=== PATIENT | female | born 1965 | race Caucasian/White ===

== ENCOUNTER 2016-12-07 08:17 | Outpatient (CLI) | payer OTHER ==
[2016-12-07 09:03] LABS: ALT (SGPT) 14 U/L (8-55); AST (SGOT) 11 U/L (5-34); Albumin 4.4 g/dL (3.5-5.0); Alkaline Phosphatase 165 U/L (40-150); Anion Gap 15 mmol/L (10-20); BUN (Urea Nitrogen) 15 mg/dL (9.8-20.1); Bilirubin, Total 0.2 mg/dL (0.2-1.2); Calc. Creatinine Clearance 0 mL/min (70-130); Calcium 9.4 mg/dL (7.8-10.44); Carbon Dioxide 28 mmol/L (22-29); Cardiac Risk 5.6 (Less than 4.5); Chloride 101 mmol/L (98-107); Cholesterol 228 mg/dL (< 200 Desired); Estimated GFR-MDRD 67; Globulin 3.6 g/dL (2.4-3.5); Glucose 147 mg/dL (70-105); HDL Cholesterol 41 mg/dL (>60 Neg Risk); LDL Cholesterol, Calculated 119 mg/dL; Potassium 3.9 mmol/L (3.5-5.1); Sodium 140 mmol/L (136-145); Triglycerides 338 mg/dL (Less than 150)
== END 2016-12-07 08:18 | disposition home or self-care (01) ==
LOC: BURLAB 08:17
PROVIDERS: ATTEND Internal Medicine Cardiovascular Disease
DX: E78.00 Pure hypercholesterolemia, unspecified (principal)
CPT/HCPCS: 36415; 80053; 80061

== ENCOUNTER 2017-01-01 03:09 | Emergency (ER) | payer OTHER ==
[2017-01-01] MEDS ORDERED: Ondansetron HCl/PF 4 MG/2 ML Vial ONE (03:17)
[2017-01-01] MEDS ORDERED: Ibuprofen 200 MG TAB ONE (03:31)
[2017-01-01 03:45] LABS: #Eosinphils 0.2 thou/uL (0.0-0.7); #Lymphocytes 1.8 thou/uL (1.20-3.40); #Monocytes 0.3 thou/uL (0.11-0.59); #Neutrophils 3.7 thou/uL (1.40-6.50); %Basophils 0.8 % (0.0-1.0); %Lymphocytes 29.4 % (21.0-51.0); %Monocytes 5.6 % (0.0-10.0); %Neutrophils 60.2 % (42.0-75.0); Hemoglobin 12.4 g/dL (12.0-16.0); Mean Corpuscular HGB CONC 31.4 g/dL (32.0-36.0); Mean Corpuscular Hemoglobin 25.1 pg (27.0-31.0); Mean Corpuscular Volume 79.8 fl (81.0-99.0); Mean Platelet Volume 7.9 fL (7.4-10.4); Platelet Count 234 thou/uL (130-400); RBC Distribution Width 14.7 % (11.5-14.5); Red Blood Cell (RBC) Count 4.96 mill/uL (4.20-5.40); White Blood Cell (WBC) Count 6.1 thou/uL (4.8-10.8)
[2017-01-01 04:00] LABS: ALT (SGPT) 18 U/L (8-55); AST (SGOT) 17 U/L (5-34); Albumin 3.7 g/dL (3.5-5.0); Alkaline Phosphatase 127 U/L (40-150); Anion Gap 16 mmol/L (10-20); BUN (Urea Nitrogen) 6 mg/dL (9.8-20.1); Bilirubin, Total 0.2 mg/dL (0.2-1.2); Calc. Creatinine Clearance 0 mL/min (70-130); Calcium 8.2 mg/dL (7.8-10.44); Carbon Dioxide 17 mmol/L (22-29); Chloride 115 mmol/L (98-107); Estimated GFR-MDRD 75; Globulin 3.4 g/dL (2.4-3.5); Glucose 136 mg/dL (70-105); Potassium 3.5 mmol/L (3.5-5.1); Protein, Total 7.1 g/dL (6.0-8.3); Sodium 144 mmol/L (136-145)
[2017-01-01 04:01] LABS: CKMB 2.9 ng/mL (0-6.6); Troponin I 0.015 ng/mL (< 0.028)
[2017-01-01 04:02] LABS: Acetaminophen Less than 6.0 mcg/mL (10.0-30.0); Alcohol 198 mg/dL (Less than 10); Salicylate Less than 8.0 mg/dL (15.0-30.0)
[2017-01-01 04:15] LABS: Lipase 45 U/L (8-78)
== END 2017-01-01 04:18 | disposition home or self-care (01) ==
LOC: BURERS 03:09
DX: R11.2 Nausea with vomiting, unspecified (principal); R19.7 Diarrhea, unspecified; I10 Essential (primary) hypertension; F17.210 Nicotine dependence, cigarettes, uncomplicated; Z79.82 Long term (current) use of aspirin; Z79.899 Other long term (current) drug therapy
CPT/HCPCS: 36416; 80053; 80307; 82553; 83605; 83690; 84484; 85025; 93005; 96361; 96374; 36415-59; J2405

== ENCOUNTER 2017-02-15 13:51 | Emergency (ER) | payer OTHER ==
[2017-02-15 14:15] LABS: #Basophils 0.1 thou/uL (0.0-0.2); #Eosinphils 0.3 thou/uL (0.0-0.7); #Lymphocytes 2.7 thou/uL (1.20-3.40); #Monocytes 0.5 thou/uL (0.11-0.59); #Neutrophils 5.3 thou/uL (1.40-6.50); %Basophils 0.7 % (0.0-1.0); %Eosinophils 3.9 % (0.0-10.0); %Lymphocytes 30.4 % (21.0-51.0); Mean Corpuscular HGB CONC 32.1 g/dL (32.0-36.0); Mean Corpuscular Hemoglobin 25.7 pg (27.0-31.0); Mean Corpuscular Volume 80.1 fl (81.0-99.0); Platelet Count 241 thou/uL (130-400); RBC Distribution Width 16.6 % (11.5-14.5); Red Blood Cell (RBC) Count 5.05 mill/uL (4.20-5.40)
[2017-02-15 14:33] LABS: ALT (SGPT) 12 U/L (8-55); AST (SGOT) 8 U/L (5-34); Alkaline Phosphatase 147 U/L (40-150); Anion Gap 17 mmol/L (10-20); BUN (Urea Nitrogen) 11 mg/dL (9.8-20.1); Bilirubin, Total 0.3 mg/dL (0.2-1.2); Calc. Creatinine Clearance 0 mL/min (70-130); Calcium 8.6 mg/dL (7.8-10.44); Carbon Dioxide 20 mmol/L (22-29); Chloride 105 mmol/L (98-107); Estimated GFR-MDRD 60; Globulin 3.7 g/dL (2.4-3.5); Glucose 172 mg/dL (70-105); Potassium 3.4 mmol/L (3.5-5.1); Protein, Total 7.7 g/dL (6.0-8.3); Sodium 139 mmol/L (136-145)
[2017-02-15 14:35] LABS: CKMB 3.3 ng/mL (0-6.6); Troponin I Less than 0.010 ng/mL (< 0.028)
--- NOTE | 2017-02-15 16:47 | RAD ---
PORTABLE CHEST 02/15/17 An AP portable film at 1409 is compared with a 08/24/16 study. The heart is normal in size. The lungs are clear. No acute infiltrate or effusion was seen. There is no vascular congestion or edema present. The trachea is midline. Median sternotomy sutures are seen from prior surgery. IMPRESSION: No acute thoracic findings. POS: HOME
== END 2017-02-15 15:25 | disposition home or self-care (01) ==
LOC: BURERS 13:51
DX: R06.00 Dyspnea, unspecified (principal); I10 Essential (primary) hypertension; I25.2 Old myocardial infarction; Z87.891 Personal history of nicotine dependence; Z79.82 Long term (current) use of aspirin; Z79.899 Other long term (current) drug therapy
CPT/HCPCS: 71010; 80053; 82553; 83880; 84484; 85025; 85379; 93005

== ENCOUNTER 2018-05-24 13:20 | Outpatient (CLI) | payer OTHER ==
--- NOTE | 2018-05-25 07:31 | RAD ---
CHEST TWO VIEWS: Date: 05-24-18 Comparison: 02-15-17 FINDINGS: The heart is normal in size. There appears to have been a prior CABG. There is no vascular congestion or edema. There is perhaps a little prominence of the interstitial markings such as one might see wi th minimal fibrosis. No focal infiltrate or effusion was appreciated. Small lesions would probably be missed in this patient and only be seen by a CT. IMPRESSION: No definite acute finding. POS: HOME
--- NOTE | 2018-05-25 07:31 | RAD ---
LEFT KNEE TWO VIEWS: Date: 05-24-18 FINDINGS: There is slight medial joint space narrowing. No fracture was seen. There is no large joint effusions . Some bony spurring is seen in the patellofemoral joint. Vascular clips are seen in the medial porti on of the distal thigh and proximal leg. IMPRESSION: No acute finding. POS: HOME
== END 2018-05-24 13:21 | disposition home or self-care (01) ==
LOC: BURRAD 13:20
PROVIDERS: ATTEND Internal Medicine
DX: Z02.3 Encounter for examination for recruitment to armed forces (principal)
CPT/HCPCS: 71046

== ENCOUNTER 2019-03-15 09:13 | Emergency (ER) | payer OTHER, SELFPAY ==
[2019-03-15 09:47] LABS: Bilirubin Negative (Negative); Blood, Urine Negative (Negative); Clarity Clear (Clear); Glucose, Urine (Dipstick) Negative (Negative); Leukocyte Trace (Negative); Nitrite Negative (Negative); Protein, Urine (Dipstick) Negative (Neg-Trace); Urobilinogen 0.2 mg/dL (Less than 2)
[2019-03-15 09:58] LABS: RBC/HPF 0-3 HPF (0-3)
[2019-03-15 09:59] LABS: Bacteria/HPF Rare-Few HPF (None Seen); Squamous Epithelial 0-3 HPF (0-3); WBC/HPF 0-3 HPF (0-3)
--- NOTE | 2019-03-15 10:15 | RAD ---
PA AND LATERAL CHEST: History: Right flank pain, back pain, chest pain. FINDINGS: Comparison is made with exam of 05-24-18. There are changes of median sternotomy. The heart size is normal. The lungs are expanded without foca l areas of consolidation, pneumothoraces, or pleural effusions. No acute cardiopulmonary process is s een. IMPRESSION: No radiographic evidence of acute cardiopulmonary process. POS: [facility]
[2019-03-15] MEDS ORDERED: traMADol HCl 50 MG TAB ONE (10:33)
== END 2019-03-15 10:37 | disposition home or self-care (01) ==
LOC: BURERS 09:13
DX: S29.012A Strain of muscle and tendon of back wall of thorax, initial encounter (principal); I25.2 Old myocardial infarction; E11.9 Type 2 diabetes mellitus without complications; E78.5 Hyperlipidemia, unspecified; I10 Essential (primary) hypertension; F17.210 Nicotine dependence, cigarettes, uncomplicated; Z79.899 Other long term (current) drug therapy; Z79.84 Long term (current) use of oral hypoglycemic drugs; X58.XXXA Exposure to other specified factors, initial encounter
CPT/HCPCS: 71046; 81003; 81015

== ENCOUNTER 2020-05-06 16:46 | Outpatient (CLI) | payer OTHER ==
--- NOTE | 2020-05-06 20:25 | RAD ---
CHEST TWO VIEWS: 05/06/20 Comparison is made with the 03/15/19 study. The heart is normal in size. There are no lobar consolidations or effusions. There is no vascular co ngestion or edema. IMPRESSION: No acute findings. POS: HOME
== END 2020-05-06 16:47 | disposition home or self-care (01) ==
LOC: BURRAD 16:46
PROVIDERS: ATTEND Physician Assistant
DX: R05 Cough (principal)
CPT/HCPCS: 71046

== ENCOUNTER 2020-05-09 16:34 | Emergency (ER) | payer OTHER ==
[~2020-05-09 16:34] MED LIST: Iopamidol 370 76% 100 ML VIAL ONE
[2020-05-09] MEDS ORDERED: Magnesium 2 GM/50 ML BAG (IN WATER) ONE (17:16)
[2020-05-09] MEDS ORDERED: methylPREDNISolone Sod Succ/PF 125 MG/2 ML VIAL ONE (17:16)
--- NOTE | 2020-05-09 17:29 | RAD ---
PORTABLE CHEST 05/09/20 COMPARISON: Comparison is made with the 05/06 study. This portable film at 1716 does not show any major infiltrate . There may be a little bit of patchy streaking in the left base. The upper lobes are clear. There is no sign of effusion. The heart and mediastinum showed no significant change. IMPRESSION: Question of minimal left basilar streaking. POS: HOME
[2020-05-09 17:58] LABS: ALT (SGPT) 22 U/L (8-55); AST (SGOT) 16 U/L (5-34); Albumin 4.1 g/dL (3.5-5.0); Alkaline Phosphatase 99 U/L (40-110); BUN (Urea Nitrogen) 6 mg/dL (9.8-20.1); Bilirubin, Total 0.3 mg/dL (0.2-1.2); Calcium 8.7 mg/dL (7.8-10.44); Carbon Dioxide 21 mmol/L (22-29); Chloride 101 mmol/L (98-107); Estimated GFR-MDRD 53; Glucose 127 mg/dL (70-105); Potassium 4.2 mmol/L (3.5-5.1); Protein, Total 7.1 g/dL (6.0-8.3)
[2020-05-09 18:02] LABS: #Basophils 0.1 thou/uL (0.0-0.2); #Eosinphils 0.4 thou/uL (0.0-0.7); #Lymphocytes 2.3 thou/uL (1.20-3.40); #Neutrophils 12.4 thou/uL (1.40-6.50); %Basophils 0.5 % (0.0-1.0); %Eosinophils 2.3 % (0.0-10.0); %Lymphocytes 14.1 % (21.0-51.0); %Monocytes 6.4 % (0.0-10.0); %Neutrophils 76.7 % (42.0-75.0); Hemoglobin 13.1 g/dL (12.0-16.0); Mean Corpuscular HGB CONC 29.7 g/dL (32.0-36.0); Mean Corpuscular Hemoglobin 26.4 pg (27.0-31.0); Mean Corpuscular Volume 88.7 fL (78.0-98.0); Mean Platelet Volume 8.8 fL (7.4-10.4); Platelet Count 315 thou/uL (130-400); RBC Distribution Width 14.5 % (11.5-14.5); Red Blood Cell (RBC) Count 4.95 mill/uL (4.20-5.40); White Blood Cell (WBC) Count 16.2 thou/uL (4.8-10.8)
[2020-05-09 18:05] LABS: Hypochromia SLIGHT = 6-15 cells (100X) (0-5/hpf); MDiff Complete? YES
[2020-05-09 18:25] LABS: Sodium 133 mmol/L (136-145)
[2020-05-09 18:27] LABS: Anion Gap 15 mmol/L (10-20)
[2020-05-09 18:40] LABS: Base Excess-Venous -2.2 mmol/L (-2.0 to 3.0); Bicarbonate (HCO3v) 22.3 mmol/L (22.0-28.0); CO2 Tension (PvCO2) 36.9 mmHg (40.0-50.0); Calcium, Ionized 1.17 mmol/L (1.15-1.33); Chloride 99 mmol/L (98-107); Hemoglobin - Calc 14.9 g/dL (12.0-16.0); Potassium 3.9 mmol/L (3.5-5.1); Sodium 133 mmol/L (138-145); T. Carbon Dioxide 23.5 mmol/L (22.0-28.0); vO2 Saturation-calc 74.8 % (60.0-85.0)
[2020-05-09] MEDS ORDERED: cefTRIAXone\\ROCEPHIN 1 GM VIAL ONE (19:00)
[2020-05-09] MEDS ORDERED: Azithromycin 500 MG VIAL ONE (19:00)
[2020-05-09] MEDS ORDERED: Sodium Chloride 0.9% 100 ML ONE (19:01)
[2020-05-09 19:29] LABS: Bilirubin Negative (Negative); Blood, Urine Negative (Negative); Clarity Slightly Cloudy (Clear); Glucose, Urine (Dipstick) Negative (Negative); Ketone, Urine Negative (Negative); Leukocyte Small (Negative); Nitrite Positive (Negative); Protein, Urine (Dipstick) Negative (Neg-Trace); Specific Gravity, Urine 1.008 (1.002-1.036); pH, Urine 5.5 (5.0-9.0)
[2020-05-09 19:31] LABS: Bacteria/HPF 3+ HPF (None Seen); RBC/HPF 0-3 HPF (0-3); Squamous Epithelial 0-3 HPF (0-3)
--- NOTE | 2020-05-09 22:01 | CT ---
CT ANGIO OF CHEST: Date: 05/09/[address] of the chest was done after a bolus of IV contrast. The amount was reduced due to a low GFR . Unfortunately, the timing of the study was off and this is really an arterial phase study and does not show the pulmonary system well. The most one could say is the main pulmonary artery and the right and left pulmonary arteries do not appear to have any large emboli in them. Past that, little can be said. Both coronary arteries fill. No mediastinal mass was seen. There is no pericardial effusion. There we re several lymph nodes seen just anterior to the nallely measuring up to 1.5 cm in size and one or two to the left of the aorta and main pulmonary artery measuring up to 1.2 cm. The lungs are abnormal in appearance in this patient. There is a diffuse tree-in-bud pattern througho ut all lobes. This is most typical of viral and interstitial pneumonias. There are, however, several small patchy ground-glass densities seen in various lobes. This has been described with COVID. A carlos tary 7.0 mm smooth nodule is seen in the periphery of the left upper lobe on one slice. There are no effusions apparent. Scans into the upper abdomen showed no focal findings of concern in the areas scanned. The adrenal gl ands are unremarkable in appearance. IMPRESSION: 1. Diffuse tree-in-bud pattern to the lungs, but also along with a few patchy ground-glass densities . The very diffuse pattern is more typical of interstitial pneumonias, but the patchy ground-glass de nsities (though not numerous) have been described in COVID. All of the above should be considerations in a differential diagnosis. 2. Indeterminate study for pulmonary embolism. The most that can be said is there were no large sadd le type emboli near the junction of the main pulmonary artery with the right and left arteries. 3. Small, 7.0 mm, smooth nodule in the peripheral left upper lobe. Statistically, this is more often benign than not, but doubtless this patient will get further follow-up imaging and it can be watched on those future studies. Findings discussed with Dr. Samuel at 2000 hours on 05/09/2020. CODE CR. POS: HOME
== END 2020-05-09 20:49 | disposition short-term general hospital (02) ==
LOC: BURERS 16:34
DX: J44.1 Chronic obstructive pulmonary disease with (acute) exacerbation (principal); J96.00 Acute respiratory failure, unspecified whether with hypoxia or hypercapnia; J18.9 Pneumonia, unspecified organism; I25.2 Old myocardial infarction; E11.9 Type 2 diabetes mellitus without complications; E78.2 Mixed hyperlipidemia; I10 Essential (primary) hypertension; F17.210 Nicotine dependence, cigarettes, uncomplicated; Z79.899 Other long term (current) drug therapy; Z79.82 Long term (current) use of aspirin; Z79.84 Long term (current) use of oral hypoglycemic drugs
CPT/HCPCS: 36415; 71045; 71275; 80053; 81003; 81015; 82330; 82803; 83880; 84484; 85025; 87040; 87077; 87086; 87186; 87804; 93005; 94760; 96365; 96367; 96375; J0456; J0696; J2930; J3475; J3490; J7620; Q9967

== ENCOUNTER 2020-06-14 20:29 | Emergency (ER) | payer OTHER ==
[2020-06-14] MEDS ORDERED: Lidocaine 1% w/Epinephrine 1:100K 20 ML VIAL ONE (20:35)
[2020-06-14] MEDS ORDERED: Bacitracin 1 PK ONE (21:18)
[2020-06-14] MEDS ORDERED: Cephalexin 250 MG CAP ONE (22:07)
--- NOTE | 2020-06-15 07:00 | CT ---
CT BRAIN WITHOUT CONTRAST: 06/14/20 FINDINGS: The ventricles are normal in size with no shift. No intracranial bleeding or extraaxial hematoma is s een. There is no sign of acute stroke, mass or edema. A soft tissue laceration and swelling is seen i n the scalp over the left frontal bone. The underlying skull appears intact and the visible paranasal sinuses are clear. IMPRESSION: No acute intracranial findings. Preliminary report called to Pavithra in the ER at 2138 hours on 06/14/20. CODE CR POS: HOME
--- NOTE | 2020-06-15 08:15 | CT ---
CT CERVICAL SPINE: 06/14/20 HISTORY/TECHNIQUE: A spiral CT of the cervical spine was done following trauma. FINDINGS: No fracture, dislocation or disk space abnormality is seen. The C1 to dens distance is normal and the soft tissues are normal in thickness. There is no sign of significant central canal or foraminal rahul nosis. IMPRESSION: No acute traumatic changes. Preliminary report called to Pavithra in the ER at 2138 hours on 06/14/20. CODE CR POS: HOME
--- NOTE | 2020-06-15 08:17 | RAD ---
RIGHT KNEE: 06/14/20 FINDINGS: Multiple views are provided, which show no acute fracture or joint effusion. A small bony density modesto ng the inferior pole of the patella is obviously from an old injury. There may be some soft tissue th ickening in the vicinity of the patellar tendon. Some very minimal osteophytes are forming in the sal nt. IMPRESSION: No acute bony finding. POS: HOME
== END 2020-06-14 22:10 | disposition home or self-care (01) ==
LOC: BURERS 20:29
DX: S01.81XA Laceration without foreign body of other part of head, initial encounter (principal); S80.01XA Contusion of right knee, initial encounter; I25.2 Old myocardial infarction; E11.9 Type 2 diabetes mellitus without complications; I10 Essential (primary) hypertension; E78.5 Hyperlipidemia, unspecified; J44.9 Chronic obstructive pulmonary disease, unspecified; E78.2 Mixed hyperlipidemia; F17.210 Nicotine dependence, cigarettes, uncomplicated; Z79.899 Other long term (current) drug therapy; Z79.82 Long term (current) use of aspirin; Z79.84 Long term (current) use of oral hypoglycemic drugs
CPT/HCPCS: 12014; 70450; 72125

== ENCOUNTER 2021-08-21 18:16 | Emergency (ER) | payer OTHER ==
[2021-08-21] MEDS ORDERED: Boostrix 0.5 ML (Tdap) VIAL ONE (18:52)
== END 2021-08-21 19:21 | disposition home or self-care (01) ==
LOC: BURERS 18:16
DX: S92.521A Displaced fracture of middle phalanx of right lesser toe(s), initial encounter for closed fracture (principal); S93.411A Sprain of calcaneofibular ligament of right ankle, initial encounter; I25.2 Old myocardial infarction; E11.9 Type 2 diabetes mellitus without complications; E78.5 Hyperlipidemia, unspecified; I10 Essential (primary) hypertension; J44.9 Chronic obstructive pulmonary disease, unspecified; F17.210 Nicotine dependence, cigarettes, uncomplicated; W01.0XXA Fall on same level from slipping, tripping and stumbling without subsequent striking against object, initial encounter
CPT/HCPCS: 90471; 90715

== ENCOUNTER 2021-12-18 17:27 | Emergency (ER) | payer OTHER ==
[2021-12-18 18:47] LABS: #Eosinphils 0.2 thou/uL (0.0-0.7); #Lymphocytes 1.2 thou/uL (1.20-3.40); #Monocytes 0.4 thou/uL (0.11-0.59); #Neutrophils 5.9 thou/uL (1.40-6.50); %Basophils 0.6 % (0.0-1.0); %Eosinophils 2.6 % (0.0-10.0); %Lymphocytes 15.5 % (21.0-51.0); %Monocytes 4.8 % (0.0-10.0); %Neutrophils 76.5 % (42.0-75.0); Hemoglobin 11.1 g/dL (12.0-16.0); Mean Corpuscular Hemoglobin 30.8 pg (27.0-31.0); Mean Corpuscular Volume 96.3 fL (78.0-98.0); Mean Platelet Volume 8.9 fL (7.4-10.4); Platelet Count 218 thou/uL (130-400); RBC Distribution Width 17.5 % (11.5-14.5); Red Blood Cell (RBC) Count 3.61 mill/uL (4.20-5.40); White Blood Cell (WBC) Count 7.8 thou/uL (4.8-10.8)
[2021-12-18 18:56] LABS: INR-International Normal Ratio 1.1; Prothrombin Time 14.1 sec (12.0-14.7)
[2021-12-18 19:04] LABS: ALT (SGPT) 23 U/L (8-55); AST (SGOT) 16 U/L (5-34); Albumin 3.5 g/dL (3.5-5.0); Alkaline Phosphatase 50 U/L (40-110); Anion Gap 17 mmol/L (10-20); BUN (Urea Nitrogen) 18 mg/dL (9.8-20.1); Bilirubin, Total 0.6 mg/dL (0.2-1.2); Calc. Creatinine Clearance 0 mL/min (70-130); Calcium 7.4 mg/dL (7.8-10.44); Carbon Dioxide 24 mmol/L (22-29); Chloride 108 mmol/L (98-107); Globulin 2.7 g/dL (2.4-3.5); Glucose 120 mg/dL (70-105); Potassium 3.5 mmol/L (3.5-5.1); Protein, Total 6.2 g/dL (6.0-8.3); Sodium 145 mmol/L (136-145)
== END 2021-12-18 20:55 | disposition short-term general hospital (02) ==
LOC: BURERS 17:27
DX: S80.11XA Contusion of right lower leg, initial encounter (principal); R60.0 Localized edema; I10 Essential (primary) hypertension; E11.9 Type 2 diabetes mellitus without complications; J44.9 Chronic obstructive pulmonary disease, unspecified; I25.2 Old myocardial infarction; E78.5 Hyperlipidemia, unspecified; F17.210 Nicotine dependence, cigarettes, uncomplicated; X58.XXXA Exposure to other specified factors, initial encounter; Z95.5 Presence of coronary angioplasty implant and graft; Z79.82 Long term (current) use of aspirin; Z79.84 Long term (current) use of oral hypoglycemic drugs; Z79.899 Other long term (current) drug therapy
CPT/HCPCS: 80053; 85025; 85610; 99284

== ENCOUNTER 2023-09-05 13:30 | Emergency (ER) | payer OTHER, SELFPAY ==
[2023-09-05 14:12] LABS: #Basophils 0.1 thou/uL (0.0-0.2); #Eosinphils 0.2 thou/uL (0.0-0.7); #Lymphocytes 1.2 thou/uL (1.20-3.40); #Monocytes 0.6 thou/uL (0.11-0.59); #Neutrophils 5.4 thou/uL (1.40-6.50); %Basophils 0.9 % (0.0-1.0); %Lymphocytes 16.4 % (21.0-51.0); %Monocytes 8.2 % (0.0-10.0); %Neutrophils 71.5 % (42.0-75.0); Hematocrit 35.4 % (36.0-47.0); Hemoglobin 11.3 g/dL (12.0-16.0); Mean Corpuscular HGB CONC 31.9 g/dL (32.0-36.0); Mean Corpuscular Hemoglobin 26.5 pg (27.0-31.0); Mean Corpuscular Volume 83.1 fl (78.0-98.0); Mean Platelet Volume 7.4 fL (7.4-10.4); Platelet Count 315 10x3/uL (130-400); RBC Distribution Width 14.2 % (11.5-14.5); Red Blood Cell (RBC) Count 4.26 mill/uL (4.20-5.40); White Blood Cell (WBC) Count 7.6 10x3/uL (4.8-10.8)
[2023-09-05] MEDS ORDERED: Ipratropium/Albuterol 3 ML NEB ONE ×2 (14:19→15:13)
[2023-09-05 14:30] LABS: ALT (SGPT) 28 U/L (8-55); AST (SGOT) 24 U/L (5-34); Albumin 3.9 g/dL (3.5-5.0); Alkaline Phosphatase 54 U/L (40-110); Anion Gap 16 mmol/L (10-20); BUN (Urea Nitrogen) 13 mg/dL (9.8-20.1); Bilirubin, Total 0.4 mg/dL (0.2-1.2); Calc. Creatinine Clearance 0 mL/min (70-130); Calcium 9.1 mg/dL (7.8-10.44); Carbon Dioxide 21 mmol/L (22-29); Chloride 108 mmol/L (98-107); Estimated GFR 40; Globulin 3.3 g/dL (2.4-3.5); Glucose 116 mg/dL (70-105); Potassium 3.5 mmol/L (3.5-5.1); Protein, Total 7.2 g/dL (6.0-8.3); Sodium 141 mmol/L (136-145)
[2023-09-05 14:36] LABS: Troponin I Less than 0.010 ng/mL (< 0.028)
[2023-09-05 15:02] LABS: SARS-CoV-2 NAA Rapid Test Not Detected (NotDetected)
[2023-09-05] MEDS ORDERED: methylPREDNISolone Sod Succ 40 MG VIAL ONE (15:13)
== END 2023-09-05 16:09 | disposition home or self-care (01) ==
LOC: BURERS 13:30
DX: J44.1 Chronic obstructive pulmonary disease with (acute) exacerbation (principal); E11.9 Type 2 diabetes mellitus without complications; I10 Essential (primary) hypertension; Z87.891 Personal history of nicotine dependence
CPT/HCPCS: 71045; 80053; 83605; 83880; 84484; 85025; 87804; 87807; 93005; 94760; 96374; J2920; J7620; U0002

== ENCOUNTER 2023-12-19 14:51 | Emergency (ER) | payer MEDICARE, SELFPAY ==
[2023-12-19] MEDS ORDERED: Acetaminophen 500 MG TAB ONE (15:39)
== END 2023-12-19 16:13 | disposition home or self-care (01) ==
LOC: BURERS 14:51
DX: S43.401A Unspecified sprain of right shoulder joint, initial encounter (principal); S70.02XA Contusion of left hip, initial encounter; S80.01XA Contusion of right knee, initial encounter; J44.9 Chronic obstructive pulmonary disease, unspecified; I25.10 Atherosclerotic heart disease of native coronary artery without angina pectoris; I10 Essential (primary) hypertension; I25.2 Old myocardial infarction; E11.9 Type 2 diabetes mellitus without complications; W18.30XA Fall on same level, unspecified, initial encounter; Z87.891 Personal history of nicotine dependence